=== PATIENT | female | born 1990 | race Caucasian/White ===

== ENCOUNTER → 2018-06-11 15:27 | Outpatient (CLI) | payer BC, SELFPAY ==
--- NOTE | 2018-06-11 15:35 | XR_ITS ---
XR wrist LT min 3V Ordering Physician: Tricia Chapin Patient Age: 28 years: Female HISTORY: ITS.REASON: TENDONITIS Tendinitis pain left wrist TECHNIQUE: 3 views left wrist COMPARISON :None FINDINGS Left wrist intact with no fracture evident. . Bones well mineralized with normal relationships. No erosions. Joint spaces well-maintained. Normal fat planes about the wrist. IMPRESSION: Left wrist intact with no fracture.
== END ==
PROVIDERS: PCP Family Medicine; Visit Provider Nurse Practitioner
DX: M77.9 Enthesopathy, unspecified (principal)
CPT/HCPCS: 73110